=== PATIENT | female | born 2000 | race Caucasian/White ===

== ENCOUNTER 2022-08-27 10:10 | Inpatient (IN) ==
--- NOTE | 2022-08-13 09:29 | Anesthesiology Consultation ---
Date of Service August 13, 2022 Assessment & Plan (1) Encounter for pre-operative examination: - COVID screening: Per assessment on 08/13: No known COVID-19 positive contacts or current COVID-19 related symptoms. Travel screen negative. Patient had rapid antigen test positive 05/26 ([facility]). Pt was asymptomatic at time (tested d/t exposure). Covid positive testing greater than 90 days from DOS. Case was reviewed with anesthesia team. Pt can proceed as scheduled without additional preop Covid testing or additional Covid contact precautions per policy. - Check test AM DOS Chart Review Chart Review: Acceptable Risk for Surgery and Patient seen in Pre Admission Testing Teaching & Discussion Pre-Anesthesia Teaching/Discussion Notes: Instructed NPO after midnight before surgery,except medications with 15 cc of water. Medication instructions provided according to the PAT guidelines. History Surgery Operation Date: 08/27/22 12:55 Proposed Procedures p L4-S1 Decompression - Tino Israel, Height/Weight Height: 5 ft 5 in Weight: 111.5 kg Allergies Allergy/AdvReac Type Severity Reaction Status Date / Time No Known Allergies Allergy Verified 08/07/22 07:40 Medications Home Medications Medication Instructions Recorded Confirmed Last Taken No Known Home Medications 08/07/22 08/07/22 Unknown Past Medical History Medical History Chronic back pain History of COVID-19 05/26/22 (rapid antigen positive, [facility] [place])- was asymptomatic (tested d/t exposure) Morbid obesity Spinal stenosis Exercise / Class Metabolic Activity II 4-5 Yardwork/Stairs/Walk up hill (one FS (no CP, no SOB)) Past Surgical History Surgical History History of adenoidectomy History of myringotomy [place] teeth extracted Past Anesthesia History No Hx of Anesthesia Complications and No Family Hx of Anesthesia Complications History of PONV No Hx of PONV and Hx of Motion Sickness (Remote hx (cars)) Social History Smoking Status: Never smoker Do You Dip or Chew Tobacco: No Hx Alcohol Use: No Hx Substance Use: No substance use type: does not use Review of Systems Patient denies chest pain, shortness of breath, dyspnea on exertion, fever, chills, cough, wheezing, palpitations. Physical Exam Vital Signs VITALS BP 115/79 P 88 TEMP 98.4 SP02 97%RA RESP 16 PHYSICAL Full cervical extension range of motion. Full TMJ range of motion. TMD 4 finger breaths Mallampati Score 1 Dentition: missing molars Lungs: clear throughout to auscultation Cardiac: regular rate and rhythm, no murmurs noted Spine: normal Extremities: no edema Thick neck Lab Results Anesthesia Preop Results Results Anesthesia Widget: WBC 7.96 K/ul (4.8-10.8) 08/13/22 Hgb 15.4 g/dl (12.0-16.0) 08/13/22 Hct 43.9 % (34.1-44.9) 08/13/22 Plt 296 K/uL (130-400) 08/13/22 Na 138 mmol/L (136-145) 08/13/22 K 3.9 mmol/L (3.5-5.1) 08/13/22 Cl 104 mmol/L (98-107) 08/13/22 CO2 23 mmol/L (21-32) 08/13/22 BUN 9 mg/dl (6-23) 08/13/22 Creat 0.61 mg/dl (0.6-1.2) 08/13/22 Glucose Level 102 mg/dl (70-99(Fasting)) H 08/13/22 PT 11.9 Seconds (9.0-12.0) 08/13/22 PTT 31.3 Seconds (21.0-31.0) H 08/13/22 INR 1.1 (0.9-1.1) 08/13/22 Urine Color Yellow 08/13/22 Urine Appearance Clear (Clear) 08/13/22 Urine pH 6.0 (4.5-7.5) 08/13/22 Urine Specific [place] 1.017 (1.000-1.030) 08/13/22 Urine Protein Negative (Negative) 08/13/22 Urine Glucose (UA) Negative (Negative) 08/13/22 Urine Ketones Negative (Negative) 08/13/22 Urine Blood Negative (Negative) 08/13/22 Urine Nitrite Negative (Negative) 08/13/22 Urine Bilirubin Negative (Negative) 08/13/22 Urine Urobilinogen Negative (Negative) 08/13/22 Urine Leukocyte Esterase Negative (Negative) 08/13/22 Blood Type O Positive 08/13/22 Antibody Screen NEGATIVE 08/13/22 Testing Electrocardiogram Date: 08/13/22 NSR with sinus arrhythmia at 85bpm. Normal ECG. Chest X-Ray Date: 08/13/22 FINDINGS: PA and lateral chest radiographs are obtained. No prior studies are available for comparison at the time of dictation. The cardiomediastinal silhouette is unremarkable. The lungs and pleural spaces are clear. There is no pneumothorax. The bony thorax appears intact. IMPRESSION: No active disease in the chest. COVID-19 Risk Screen Screening Information COVID-19 Screen Date: 08/13/22 Exposure 21 Days Family/Household +COVID Last 21 Days: No Exposure 10 Days Any COVID Exposure Last 10 Days: No Symptoms Last 10 Days Experienced COVID Sx Last 10 Days: No + COVID 0-90 Days COVID + in Last 0-90 Days: Yes + COVID Test 0-10 Day: No + COVID Test 11-90 Day: Yes Date/Place of COVID-19 Test: Rapid antigen 05/26
[~2022-08-27 10:10] MED LIST: ACETAMINOPHEN 500 MG TAB PO SCH; CeleBREX 200 MG CAP PO SCH; GABAPENTIN 900 MG DOSE PO SCH; LR 15ML/HR IV SCH; ceFAZolin 2000MG 2,000 MG/15 ML SYR IV SCH
[2022-08-27] MEDS ORDERED: fentaNYL citrate 100 MCG/2 ML VIAL ONE ×3 (10:52→13:20)
[2022-08-27] MEDS ORDERED: MIDAZOLAM HCL 1 MG/ML 2ML VIAL ONE (10:52)
--- NOTE | 2022-08-27 12:23 | History & Physical Bridge Note ---
Date of Service August 27, 2022 History & Physical Bridge Note I have examined the patient, reviewed the History & Physical and in the interval since the performance of the History & Physical I have noted the following changes of clinical significance: no changes noted
--- NOTE | 2022-08-27 12:24 | History & Physical Report ---
Date of Service August 27, 2022 Assessment & Plan (1) Lumbar disc herniation with radiculopathy: Plan: L4-S1 decompression History of Present Illness Chief Complaint: Back and bilateral leg pain Primary Care Provider: NO PCP This is a 22-year-old female who presents with chronic persistent bilateral leg pain after failing extensive course of nonoperative care is here for surgical invention. Allergies Allergy/AdvReac Type Severity Reaction Status Date / Time No Known Allergies Allergy Verified 08/27/22 11:02 Home Medications Medication Instructions Recorded Confirmed Type No Known Home Medications 08/07/22 08/07/22 History Past Med/Surg History Medical History Chronic back pain History of COVID-19 05/26/22 (rapid antigen positive, [facility] [place])- was asymptomatic (tested d/t exposure) Morbid obesity Spinal stenosis Surgical History History of adenoidectomy History of myringotomy [place] teeth extracted Social History Smoking Status: Never smoker Second Hand Exposure: No; Do You Dip or Chew Tobacco: No; Tobacco Cessation Education Requested by Patient: No Hx Alcohol Use: No Hx Substance Use: No Preferred Language: Tongan Communication Ability: Effective Business Loan Processor Required: No Beliefs That Will Affect Care: None Current Living Situation: Alone Other Information That Helps Us Care for You: No Feels Safe at Home: Yes Safety Concerns: Feels Safe At This Time Assistive Devices: Glasses Physical Exam Physical Exam: Patient is alert and oriented Heart regular rhythm Lungs clear Results & Data Results & Data ([facility]) Vital Signs (Past 12 Hours) Vital Signs Temp Pulse Resp BP Pulse Ox O2 Del Method 08/27/22 11:05 36.7 C 99 H 20 113/79 97 Room Air
[2022-08-27] MEDS ORDERED: ceFAZolin 330 MG/ML 1 GM VIAL ONE (12:35)
[2022-08-27] MEDS ORDERED: BUPIVACAINE/EPINEPHRINE 0.25% 1:200,000 30 ML VIAL ONE (12:36)
[2022-08-27] MEDS ORDERED: DEXAMETHASONE SOD INJ 4 MG/ML VIAL ONE (13:21)
[2022-08-27] MEDS ORDERED: LARYING-O-JET KIT (LTA) ONE (13:21)
[2022-08-27] MEDS ORDERED: PROPOFOL IV EMULSION 10 MG/ML 20 ML VIAL IV ONE (13:21)
[2022-08-27] MEDS ORDERED: ROCURONIUM BROMIDE 10 MG/ML 5 ML VIAL IV ONE (13:21)
[2022-08-27] MEDS ORDERED: NEOSTIGMINE METHYLSULFATE 1 MG/ML 10ML VIAL ONE (13:21)
[2022-08-27] MEDS ORDERED: ONDANSETRON INJ 2 MG/ML 2 ML VIAL ONE (13:21)
[2022-08-27] MEDS ORDERED: LIDOCAINE 2% MPF LOCAL 5 ML VIAL INFIL ONE (13:21)
[2022-08-27] MEDS ORDERED: GLYCOPYRROLATE 0.2 MG/ML VIAL ONE (13:21)
[2022-08-27] MEDS ORDERED: ATROPINE SULFATE 0.1 MG/ML 10ML SYR IV PRN (13:47)
[2022-08-27] MEDS ORDERED: PROMETHAZINE HCL 12.5 MG in SODIUM CHLORIDE 0.9% 50 ML IV PRN ×2 (13:47→15:31)
[2022-08-27] MEDS ORDERED: HYDROmorphone INJ 2 MG/ML SYR/VIAL IV PRN (13:47)
[2022-08-27] MEDS ORDERED: ONDANSETRON INJ 2 MG/ML 2 ML VIAL IV PRN ×2 (13:47→15:31)
[2022-08-27] MEDS ORDERED: ePHEDrine sulfate 50 MG/ML AMP IV PRN (13:47)
[2022-08-27] MEDS ORDERED: FLOSEAL HEMOSTATIC MATRIX 10ML TOP ONE (13:56)
--- NOTE | 2022-08-27 14:04 | Operative Report ---
Post Operative Report Pre & Post Diagnosis Operation Date: 08/27/22 12:35 Pre-Op Diagnosis: Intervertebral Disc Disorders with Radiculopathy Post-Op Diagnosis: Intervertebral Disc Disorders with Radiculopathy I identified the patient and participated in the time-out.: Yes Procedure Operation Date: 08/27/22 12:35 Actual Procedures Lumbar laminotomy with medial facetectomy and partial discectomy L4-L5 L5-S1 on the left Surgeon Tino Israel, Meter Inspector Amira Valera Estimated Blood Loss 10 Findings See Below The patient is 5 foot 5 inches tall weighing over 112 kg with a BMI in excess of 41. The patient's body was did contribute to significant technical difficulty required deepest retractors noted to perform this procedure. This at least 50% increased operative time. Specimens None Indications This is a 22-year-old female presents with lumbar disc herniations L4-L5 L5-S1 left and significant radiculopathy. Failing course of nonoperative care she is here for surgical invention. Description of Procedure Patient was met with identified informed consent obtained. Patient was then taken to the operative suite underwent a patient placed in a prone position the [place] table top Lamonte frame. All bony prominences well-padded eyes inspected to ensure no external pressure placed upon the. This point the lumbar spine was prepped and draped in a sterile fashion. The assistance of fluoroscopy identify the L4-L5 L5-S1 disc base and a small midline incision was created overlying his region. Sharp dissection with assistance of Bovie cautery was formed down to and exposing the interlaminar space at L4-L5 and L5-S1 on the left. Self-romina ining retractors placed. Beginning with L5-S1 a small laminotomy was created and excised the lateral portion of ligamentum flavum and part of the medial facet to expose a severely compressed traversing S1 nerve root. Was able to mobilize this medially and identified large disc protrusion. Small annulotomy was created and several loose fragments were removed. There was explored several times which were all fragments addressed. I then proceeded to L4-L5 and again a small laminotomy created on the left excising the lateral portion of ligamentum flavum and medial facet to expose a severely compressed traversing L5 nerve root. I was able to mobilize this medially. I created a small annulotomy and removed all loose fragments of disc material to the root was free. After this complete the incision was then copiously irrigated a 10 round ONEAL drain inserted. The incision was then closed with 1 Vicryl the fascia 2-0 Vicryl subcutaneously and 4 Monocryl for final skin closure. Steri-Strip sterile dressings placed. Patient waken taken to PACU in stable condition. Please note Amira Valera was present out the entire procedure involved the patient positioning complex portions of the surgery and final skin closure. I attest to the content of the Intraoperative Record and any orders documented therein. Any exceptions are noted below.
--- NOTE | 2022-08-27 14:40 | Fluoroscopy Report ---
FL spine 1V any level CLINICAL HISTORY: L4-S1 DECOMPRESSION COMPARISON STUDY: None. FLUOROSCOPY TIME: 3.2 seconds. FLUOROSCOPIC IMAGES: 1 FINDINGS: Single lateral fluoroscopic intraoperative image was obtained. This demonstrates surgical r etractors and a surgical instrument directed toward the posterior elements at the upper S1 level. Ret ractors are at the L5-S1 level. IMPRESSION: Intraoperative fluoroscopic image, as above. ACT 112: Negative or not required by law. Electronically signed by: Joseph Morales M.D. 08/27/2022 2:39 PM
[2022-08-27] MEDS: fentaNYL citrate 100 MCG/2 ML VIAL IV PRN ×2 (14:56→15:36)
--- NOTE | 2022-08-27 15:15 | Anesthesiology Progress Note ---
Date of Service August 27, 2022 Anesthesia Post Procedure Vital Signs Vital Signs: Temp Pulse Pulse Resp BP Pulse Ox O2 Del Method 08/27/22 14:45 65 16 132/74 97 Oxymask 08/27/22 14:35 79 14 128/83 97 Oxymask 08/27/22 15:05 36.7 C 78 15 125/80 94 Room Air 08/27/22 14:55 94 H 13 136/99 97 Oxymask 08/27/22 14:25 89 21 147/91 H 98 Oxymask 08/27/22 14:17 36.1 C L 91 H 22 133/81 99 Oxymask 08/27/22 11:05 36.7 C 99 H 20 113/79 97 Room Air O2 Flow Rate 08/27/22 14:45 5 08/27/22 14:35 5 08/27/22 15:05 08/27/22 14:55 5 08/27/22 14:25 5 08/27/22 14:17 5 08/27/22 11:05 Pain Intensity Lower Back: Pain Intensity: 8 Transfer of Care Handoff Completed per policy Notes Mental Status: alert / awake / arousable and participated in evaluation Patient Amnestic to Procedure: Yes Nausea / Vomiting: adequately controlled Pain: adequately controlled Airway Patency, RR, SpO2: stable & adequate BP & HR: stable & adequate Hydration State: stable & adequate Anesthetic Complications: no major complications apparent
[2022-08-27] MEDS ORDERED: ACETAMINOPHEN 1,000 MG/100 ML VIAL IV PRN (15:31)
[2022-08-27] MEDS ORDERED: FAMOTIDINE 20 MG TAB PO PRN (15:31)
[2022-08-27] MEDS ORDERED: diphenhydrAMINE Capsule 25 MG CAP PO PRN (15:31)
[2022-08-27] MEDS ORDERED: ONDANSETRON 4 MG OD TAB PO PRN (15:31)
[2022-08-27] MEDS ORDERED: LORazepam 0.5 MG TAB PO PRN (15:31)
[2022-08-27] MEDS ORDERED: HYDROmorphone INJ 1 MG/ML SYRINGE IV PRN (15:31)
[2022-08-27] MEDS ORDERED: traMADol HCL 50 MG TABLET PO PRN (15:31)
[2022-08-27] MEDS ORDERED: LORazepam 0.5 MG in SYRINGE 0 ML IV PRN (15:31)
[2022-08-27] MEDS ORDERED: ACETAMINOPHEN 500 MG TAB PO PRN (15:31)
[2022-08-27] MEDS ORDERED: METOCLOPRAMIDE HCL INJ 5 MG/ML 2 ML VIAL IV PRN (15:31)
[2022-08-27] MEDS ORDERED: SOD PHOSPHATE/SOD BIPHOSPHATE ENEMA 132 ML BTL PR PRN (15:31)
[2022-08-27] MEDS ORDERED: hydrOXYzine HCl 25 MG TAB PO PRN (15:31)
[2022-08-27] MEDS ORDERED: NALOXONE HCL 0.4 MG/1 ML VIAL/CARP IV PRN (15:31)
[2022-08-27] MEDS ORDERED: bisacodyL 10 MG SUPP PR PRN (15:31)
[2022-08-27] MEDS ORDERED: HYDROmorphone INJ 0.5 MG/0.5 ML SYR IV PRN (15:31)
[2022-08-27] MEDS ORDERED: MAGNESIUM HYDROXIDE SUSP 30 ML UDC PO PRN (15:31)
[2022-08-27] MEDS ORDERED: ALUMINUM/MAGNESIUM SUSP 30 ML UDC PO PRN (15:31)
[2022-08-27] MEDS: KETOROLAC 30 MG/ML VIAL IV SCH ×2 (17:24→22:16)
[2022-08-27] MEDS: LACTATED RINGER'S 1,000 ML IV SCH (17:46)
[2022-08-27] MEDS: oxyCODONE HCL IR 5 MG TAB (IMMEDIATE RELEASE) PO PRN ×2 (17:54→22:26)
[2022-08-27] MEDS: ceFAZolin 2000MG 2,000 MG/15 ML SYR IV SCH (20:02)
[2022-08-27] MEDS ORDERED: DOCUSATE SODIUM/SENNA 50/8.6MG TAB PO SCH (21:00)
[2022-08-28] MEDS: LACTATED RINGER'S 1,000 ML IV SCH (01:43)
[2022-08-28] MEDS: KETOROLAC 30 MG/ML VIAL IV SCH ×2 (04:23→09:46)
[2022-08-28] MEDS ORDERED: POLYETHYLENE (MIRALAX) 17 GM PACK PO SCH (06:00)
[2022-08-28] MEDS: ceFAZolin 2000MG 2,000 MG/15 ML SYR IV SCH (06:08)
[2022-08-28] MEDS ORDERED: COUGH DROP (SUGAR FREE) LOZ 24 LOZ/1 BOX BUCCAL ONE (06:12)
[2022-08-28] MEDS ORDERED: dexAMETHasone 6 MG in SYRINGE 0 ML IV SCH (09:00)
[2022-08-28] MEDS: oxyCODONE HCL IR 5 MG TAB (IMMEDIATE RELEASE) PO PRN (10:20)
--- NOTE | 2022-09-02 08:12 | Discharge Summary ---
Date of Service September 02, 2022 Admission HPI Per Admitting Provider This is a 22-year-old female who presents with chronic persistent bilateral leg pain after failing extensive course of nonoperative care is here for surgical invention. Principal Diagnosis Lumbar disc condition with radiculopathy Discharge Data Allergies Allergy/AdvReac Type Severity Reaction Status Date / Time No Known Allergies Allergy Verified 08/27/22 11:02 Procedures Performed Operation Date: 08/27/22 12:35 Actual Procedures p L4-S1 Decompression(Not Applicable) - Tino Israel DO Ordered Studies 08/27/22 12:35 [place] spine 1V any level Routine Hospital Course (1) Lumbar disc herniation with radiculopathy: Patient was admitted for central Zosyn to orthopedic for possibly postop day 1 ONEAL drainage decreased probably. Eccentric to testing. Pain well controlled. Separately discharged home. Discharge orders instructions on the chart for further review. Total Time Total Time Spent Total Time Spent (In Minutes): 20 Discharge Plan Discharge Items Patient Disposition: Home - Self-Care Reason For Visit: POST OP Discharge Diagnosis: Lumbar disc herniation with radiculopathy Activity: As commented below Non-emergency contact: Primary Care Provider Call non-emergency contact if: you have any medication questions Follow-up/Referrals: PCP,NO [Primary Care Provider] - Diet: Regular Addtl Attending Provider Instructions: ACTIVITY RECOMMENDATIONS: SELF CARE INSTRUCTIONS AFTER A LAMINECTOMY 1. No prolonged sitting (less than 30 minutes for the first 3 weeks after surgery). 2. No bending, lifting more than 5 pounds, or twisting (roll like a log when turning in bed). 3. You may shower 3 days after surgery if no drainage from wound. Thoroughly dry wound. Do not soak in the tub. 4. Please walk as much as you can for exercise. Gradually increase the distance that you walk as your endurance increases. 5. You may drive in 7-10 days if you are comfortable and no longer requiring pa in medications. SPECIAL CARE INSTRUCTIONS: VERY IMPORTANT TO READ AND REVIEW A. Your surgical incision has been closed with a cosmetic suture under the skin that will dissolve in about 6 weeks. In 14 days, you can use a pair of clean scissors and cut the suture that is left outside of the skin at the ends of your incision. B. Complications are uncommon, but please contact us if you have any signs or symptoms of: 1. wound infection (fever higher than 102.5 degrees F, redness, separation of wound, drainage, or increasing pain from the incision) 2. blood clots in legs (pain, swelling, redness and warmth in legs) 3. urinary tract infection (fever higher than 102.5 degrees, burning upon urination or increased frequency of urination) 4. nerve problems (inability to walk on your toes or heels, numbness, loss of bowel or bladder control) 5. any other symptoms that concern you. C. Please call the office at if you have any concerns or questions about your operation or recovery. MANAGING PAIN AFTER SPINAL SURGERY 1. Narcotic medication is intended for short-term use and will be provided for surgical pain. Surgical pain usually lasts for a period of 4-6 weeks. Narcotic medication includes Percocet, Vicodin, Darvocet, Tylenol #3 or Lortab. 2. Longer-term pain is more appropriately treated with non-narcotic medication such as Tylenol ES. 3. Muscle spasm is not appropriately treated with narcotics. Muscle relaxers such as Soma, Flexeril or Skelaxin can be used along with Tylenol ES. 4. Remember that we all live with some "aches and pains". This is not unusual or uncommon after an injury or as we get older. 5. We will provide appropriate medication within the normal guidelines of their prescribed use. We will also be very cautious and aware of potential abuse and extended duration of patients' medication needs. 6. Please allow 2-3 days to process refills. Prescriptions will not be mailed but must be picked up at the office. FOLLOW UP VISIT: Keep your scheduled follow-up appointment. Any questions, please call the office at . Pending Studies at Discharge: No Stand-Alone Forms: My [facility] [employer], Opioid Pain Management, Smoking Cessation Medications and DC Order Prescriptions: New tramadol 50 mg tablet 50 mg PO Q6H PRN (Reason: pain, moderate) Qty: 20 0RF oxycodone 5 mg tablet 5 mg PO Q6H PRN (Reason: pain, severe) Qty: 20 0RF Discharge Orders: Discharge Order (Routine); Ordered 08/28/22 Ordered By: Tino Hoffmann/Other Patient Handouts: Back Safety Bed, Back Safety: Bending, Back Safety: Lifting, Back Safety: Pushing and Pulling, Back Safety: Sleeping Positions, Back Safety: Sitting, Back Safety: Standing, Back Safety: Turning, Back Safety: Basics of Good Posture, Back Safety: Poor Posture Hurts Admission Data Admit Date/Time: 08/27/22 14:06 Attending Provider: Tino Israel Admit Provider: Tino Israel Primary Care Provider: PCP,NO Other Interventions: Discharge Summary Assessment (RN) Last Done: 08/28/22 10:36
== END 2022-08-28 11:50 | disposition home or self-care (01) | DRG 519 ==
LOC: ASU 10:10 → PACUINP 10:10 → OBSVTOIN 14:06 → 3N 17:42